=== PATIENT | female | born 1990 | race Caucasian/White ===

== ENCOUNTER 2017-06-13 17:18 | Emergency (ER) | payer MEDICAID, OTHER ==
[~2017-06-13] VITALS: Ht 160 cm; Wt 68.2 kg
[~2017-06-13 17:18] MED LIST: TNFMISC
[2017-06-13] MEDS ORDERED: KETOROLAC TROMETHAMINE 30 MG/ML VIAL IM ONE (19:15)
[2017-06-13 19:47] VITALS: BP 119/75
== END 2017-06-13 20:20 | disposition home or self-care (01) ==
LOC: EMS 17:20
DX: S13.4XXA Sprain of ligaments of cervical spine, initial encounter (principal); V49.40XA Driver injured in collision with unspecified motor vehicles in traffic accident, initial encounter; Y93.89 Activity, other specified; Y92.89 Other specified places as the place of occurrence of the external cause; Y99.8 Other external cause status
CPT/HCPCS: 96372; 99283; J1885

== ENCOUNTER 2023-03-16 22:11 | Emergency (ER) | payer MEDICAID, OTHER ==
[~2023-03-16] VITALS: Ht 160 cm; Wt 77.3 kg
[2023-03-16 22:28] VITALS: TEMP 98.5
[2023-03-17] MEDS ORDERED: CYCLOBENZAPRINE HCL 10 MG TABLET PO ONE (00:30)
[2023-03-17] MEDS ORDERED: LIDOCAINE 5% TRANSDERMAL PATCH TD ONE (00:30)
[2023-03-17] MEDS ORDERED: KETOROLAC TROMETHAMINE 30 MG/ML VIAL IM ONE (00:30)
[2023-03-17 01:30] VITALS: BP 114/75; PULSE 65; RESP 17
[2023-03-17] MEDS ORDERED: LIDO700A15 TP (01:55)
[2023-03-17] MEDS ORDERED: IBUP-1492 PO (01:55)
[2023-03-17] MEDS ORDERED: CYCL-448 PO (01:55)
== END 2023-03-17 02:00 | disposition home or self-care (01) ==
LOC: EMS 22:15
DX: M54.16 Radiculopathy, lumbar region (principal)
CPT/HCPCS: 99283; 96372; J1885